=== PATIENT | male | born 1995 | race Caucasian/White ===

== ENCOUNTER 2018-07-11 12:47 | Emergency (ER) | payer MEDICAID, OTHER ==
[~2018-07-11] VITALS: Ht 177.8 cm; Wt 68.0 kg
[2018-07-11 13:09] VITALS: BP 137/71
== END 2018-07-11 14:57 | disposition home or self-care (01) ==
LOC: ER 12:49
DX: S93.602A Unspecified sprain of left foot, initial encounter (principal); S46.912A Strain of unspecified muscle, fascia and tendon at shoulder and upper arm level, left arm, initial encounter; R51 Headache; G93.0 Cerebral cysts; V49.49XA Driver injured in collision with other motor vehicles in traffic accident, initial encounter; Y93.89 Activity, other specified; Y99.8 Other external cause status; Y92.89 Other specified places as the place of occurrence of the external cause
CPT/HCPCS: 70450; 73030; 73630